=== PATIENT | male | born 1960 | race African-American/Black ===

== ENCOUNTER 2017-08-18 11:52 | Emergency (ER) | payer BC ==
[2017-08-18 12:38] LABS: #Basophils 0.1 thou/uL (0.0-0.2); #Eosinphils 0.2 thou/uL (0.0-0.7); #Monocytes 0.6 thou/uL (0.11-0.59); #Neutrophils 2.2 thou/uL (1.40-6.50); %Basophils 1.4 % (0.0-1.0); %Lymphocytes 49.5 % (21.0-51.0); %Monocytes 9.9 % (0.0-10.0); %Neutrophils 36.1 % (42.0-75.0); Hemoglobin 13.8 g/dL (14.0-18.0); Mean Corpuscular HGB CONC 32.3 g/dL (32.0-36.0); Mean Corpuscular Hemoglobin 29.9 pg (27.0-31.0); Mean Corpuscular Volume 92.6 fl (80.0-94.0); Mean Platelet Volume 8.5 fL (7.4-10.4); Platelet Count 239 thou/uL (130-400); RBC Distribution Width 11.9 % (11.5-14.5); Red Blood Cell (RBC) Count 4.62 mill/uL (4.70-6.10); White Blood Cell (WBC) Count 6.1 thou/uL (4.8-10.8)
[2017-08-18 13:10] LABS: CKMB 1.4 ng/mL (0-6.6); Troponin I Less than 0.010 ng/mL (< 0.028)
--- NOTE | 2017-08-18 13:16 | RAD ---
ABDOMEN TWO VIEWS WITH ONE VIEW CHEST RADIOGRAPH: History: Pain. Comparison: Chest one view, 06-07-17 FINDINGS: The lungs are clear. No pneumothorax or effusion. Cardiac silhouette and mediastinal contours are wit hin normal limits. There is an area of sclerosis in the right humeral head. Upright view of the abdomen demonstrates no free air under the hemidiaphragms. No dilated loops of la rge or small bowel. No abnormal calcification projecting over the renal shadow. There is narrowing of the pubic symphysis. IMPRESSION: No intrathoracic abnormality. POS: [facility]
[2017-08-18 13:26] LABS: ALT (SGPT) 14 U/L (8-55); AST (SGOT) 17 U/L (5-34); Albumin 4.2 g/dL (3.5-5.0); Alkaline Phosphatase 56 U/L (40-150); Anion Gap 12 mmol/L (10-20); BUN (Urea Nitrogen) 14 mg/dL (8.4-25.7); Bilirubin, Total 0.4 mg/dL (0.2-1.2); CK (CPK) 148 U/L (30-200); Calc. Creatinine Clearance 0 mL/min (70-130); Calcium 9.6 mg/dL (7.8-10.44); Carbon Dioxide 24 mmol/L (22-29); Chloride 104 mmol/L (98-107); Estimated GFR-MDRD 76; Globulin 3.6 g/dL (2.4-3.5); Glucose 190 mg/dL (70-105); Lipase 107 U/L (8-78); Potassium 3.9 mmol/L (3.5-5.1); Protein, Total 7.8 g/dL (6.0-8.3); Sodium 136 mmol/L (136-145)
[2017-08-18 13:49] LABS: Bilirubin Negative (Negative); Blood, Urine Negative (Negative); Clarity CLEAR (Clear); Glucose, Urine (Dipstick) Negative (Negative); Leukocyte Negative (Negative); Nitrite Negative (Negative); Protein, Urine (Dipstick) Negative (Neg-Trace); Urobilinogen 0.2 mg/dL (0.2-1.0); pH, Urine 6.5 (5.0-9.0)
--- NOTE | 2017-08-18 14:11 | ULT ---
RIGHT UPPER QUADRANT ULTRASOUND: History: Right upper quadrant pain. FINDINGS: Gallbladder has a normal appearance without evidence of stones. Common duct is 0.4 cm diameter. No fr ee fluid is apparent. Liver is unremarkable without focal mass or intrahepatic biliary dilatation. IMPRESSION: No evidence of gallstones or biliary obstruction. POS: [facility]
== END 2017-08-18 14:52 | disposition home or self-care (01) ==
LOC: ERS 11:52
DX: K85.90 Acute pancreatitis without necrosis or infection, unspecified (principal); E11.9 Type 2 diabetes mellitus without complications; I10 Essential (primary) hypertension; Z87.891 Personal history of nicotine dependence
CPT/HCPCS: 36415; 74022; 76705; 80053; 81003; 82550; 82553; 83690; 84484; 85025; 93005

== ENCOUNTER 2017-10-30 19:23 | Emergency (ER) | payer BC, SELFPAY ==
[~2017-10-30 19:23] MED LIST: ISOVUE-370 76%-LOCM 1 ML ONE
[2017-10-30] MEDS ORDERED: Morphine 4 MG/ML VIAL ONE (19:43)
[2017-10-30] MEDS ORDERED: Ondansetron HCl/PF 4 MG/2 ML Vial ONE (19:43)
[2017-10-30 19:56] LABS: #Basophils 0.1 thou/uL (0.0-0.2); #Eosinphils 0.1 thou/uL (0.0-0.7); #Lymphocytes 3.3 thou/uL (1.20-3.40); #Monocytes 0.6 thou/uL (0.11-0.59); #Neutrophils 2.6 thou/uL (1.40-6.50); %Basophils 0.8 % (0.0-1.0); %Eosinophils 1.9 % (0.0-10.0); %Lymphocytes 49.3 % (21.0-51.0); %Monocytes 8.5 % (0.0-10.0); %Neutrophils 39.5 % (42.0-75.0); Hemoglobin 14.8 g/dL (14.0-18.0); Mean Corpuscular HGB CONC 33.8 g/dL (32.0-36.0); Mean Corpuscular Volume 91.7 fl (80.0-94.0); Mean Platelet Volume 8.8 fL (7.4-10.4); Platelet Count 197 thou/uL (130-400); RBC Distribution Width 11.7 % (11.5-14.5); Red Blood Cell (RBC) Count 4.77 mill/uL (4.70-6.10); White Blood Cell (WBC) Count 6.6 thou/uL (4.8-10.8)
[2017-10-30 20:15] LABS: ALT (SGPT) 17 U/L (8-55); AST (SGOT) 15 U/L (5-34); Albumin 4.4 g/dL (3.5-5.0); Alkaline Phosphatase 68 U/L (40-150); Anion Gap 13 mmol/L (10-20); BUN (Urea Nitrogen) 14 mg/dL (8.4-25.7); Bilirubin, Total 0.3 mg/dL (0.2-1.2); CK (CPK) 175 U/L (30-200); Calc. Creatinine Clearance 0 mL/min (70-130); Calcium 9.6 mg/dL (7.8-10.44); Carbon Dioxide 26 mmol/L (22-29); Chloride 102 mmol/L (98-107); Estimated GFR-MDRD 57; Globulin 3.7 g/dL (2.4-3.5); Glucose 348 mg/dL (70-105); Lipase 49 U/L (8-78); Potassium 3.9 mmol/L (3.5-5.1); Protein, Total 8.1 g/dL (6.0-8.3); Sodium 137 mmol/L (136-145)
--- NOTE | 2017-10-30 22:07 | CT ---
CT OF THE ABDOMEN OF THE ABDOMEN AND PELVIS WITH IV CONTRAST: Indication: Abdominal pain. Comparison: Prior exam dated 09-19-15. FINDINGS: There is bibasilar atelectasis. The liver, spleen, pancreas, adrenal glands and kidneys are within normal limits. There are mild vasc ular calcifications involving the aorta. There are two separate paraumbilical hernias that are stable. There is subcutaneous inflammatory infi ltration overlying the mid abdomen which may be related to injection site. No acute osseous abnormali ty is evident. IMPRESSION: 1. No definite acute abnormality. 2. Stable paraumbilical hernias. 3. Inflammatory infiltration involving the left midabdomen subcutaneous tissues likely related to inj ection site. POS: [facility]
== END 2017-10-30 21:42 | disposition home or self-care (01) ==
LOC: ERS 19:23
DX: K42.9 Umbilical hernia without obstruction or gangrene (principal); E11.9 Type 2 diabetes mellitus without complications; I10 Essential (primary) hypertension; Z87.891 Personal history of nicotine dependence
CPT/HCPCS: 36415; 74177; 80053; 82550; 83605; 83690; 85025; 96361; 96374; 96375; J2270; J2405

== ENCOUNTER 2018-07-09 16:26 | Emergency (ER) | payer SELFPAY | END 2018-07-09 17:39 | disposition home or self-care (01) | LOC: ERS 16:26 | DX: B37.49 Other urogenital candidiasis (principal); E11.9 Type 2 diabetes mellitus without complications; I10 Essential (primary) hypertension; Z87.891 Personal history of nicotine dependence; Z79.4 Long term (current) use of insulin; Z79.899 Other long term (current) drug therapy | CPT/HCPCS: 99283 ==

== ENCOUNTER 2018-07-24 19:13 | Emergency (ER) | payer SELFPAY ==
[2018-07-24] MEDS ORDERED: Insulin Regular 300 UNITS/3 ML VIAL ONE (19:30)
[2018-07-24 19:42] LABS: Base Excess-Venous -0.7 mmol/L (0 (+/- 2.5)); Bicarbonate (HCO3v) 23.2 mmol/L (22.0-29.0); CO2 Tension (PvCO2) 35.5 mmHg (41.0-51.0); Calcium, Ionized 1.08 mmol/L (1.12-1.32); Hemoglobin - Calc 15.7 g/dL (12.0-18.0); O2 Tension (PvO2) 49.5 mmHg (35.0-45.0); Potassium 3.8 mmol/L (3.4-4.7); T. Carbon Dioxide 24.3 mmol/L (1.0-85.0); pH (Venous) 7.423 (7.35-7.45); vO2 Saturation-calc 85.7 % (94-98)
[2018-07-24 19:50] LABS: Hemoglobin 14.4 g/dL (14.0-18.0); Mean Corpuscular HGB CONC 34.8 g/dL (32.0-36.0); Mean Corpuscular Hemoglobin 30.6 pg (27.0-31.0); Mean Corpuscular Volume 87.8 fL (78.0-98.0); Mean Platelet Volume 9.6 fL (7.4-10.4); Platelet Count 182 thou/uL (130-400); RBC Distribution Width 11.9 % (11.5-14.5); White Blood Cell (WBC) Count 8.2 thou/uL (4.8-10.8)
[2018-07-24 20:11] LABS: ALT (SGPT) 18 U/L (8-55); AST (SGOT) 24 U/L (5-34); Albumin 4.4 g/dL (3.5-5.0); Alkaline Phosphatase 87 U/L (40-150); Anion Gap 17 mmol/L (10-20); BUN (Urea Nitrogen) 20 mg/dL (8.4-25.7); Bilirubin, Total 0.7 mg/dL (0.2-1.2); Calc. Creatinine Clearance 0 mL/min (70-130); Calcium 9.6 mg/dL (7.8-10.44); Carbon Dioxide 20 mmol/L (22-29); Chloride 94 mmol/L (98-107); Estimated GFR-MDRD 52; Globulin 3.9 g/dL (2.4-3.5); Glucose 548 mg/dL (70-105); Lymphocytes 40 % (21-51); MDiff Complete? YES; Monocytes 6 % (0-10); Neutrophil 54 % (42-75); PLT Morphology Comment Appears Adequate; Protein, Total 8.3 g/dL (6.0-8.3); Sodium 127 mmol/L (136-145)
[2018-07-24 20:19] LABS: Bilirubin Negative (Negative); Blood, Urine Negative (Negative); Clarity CLEAR (Clear); Glucose, Urine (Dipstick) >=1000 mg/dL (Negative); Leukocyte Negative (Negative); Nitrite Negative (Negative); Protein, Urine (Dipstick) Negative (Neg-Trace); Specific Gravity, Urine 1.033 (1.002-1.036); Urobilinogen 0.2 mg/dL (0.2-1.0)
[2018-07-24] MEDS ORDERED: Insulin Glargine 20 UNITS in Pre-Filled Syringe 1 EACH SC SCH (21:45)
== END 2018-07-24 22:20 | disposition home or self-care (01) ==
LOC: ERS 19:13
DX: E11.65 Type 2 diabetes mellitus with hyperglycemia (principal); I10 Essential (primary) hypertension; Z87.891 Personal history of nicotine dependence; Z79.4 Long term (current) use of insulin; Z79.899 Other long term (current) drug therapy
CPT/HCPCS: 36415; 36416; 80053; 81003; 82010; 82330; 82803; 85025; 96360; 96361; J1815